=== PATIENT | female | born 1975 | race Caucasian/White ===

== ENCOUNTER 2024-06-19 22:34 | Emergency (ER) | payer MEDICAID, OTHER ==
[~2024-06-19] VITALS: Ht 149.9 cm; Wt 86.2 kg
[~2024-06-19 22:34] MED LIST: DIAZ-950 PO; HYDR-5071 PO; QUET50TA PO; SERT100T PO
[2024-06-19 22:47] VITALS: BP 157/79; PULSE 105; RESP 18; TEMP 97.9; O2SAT 96
[2024-06-19 22:58] VITALS: BP 167/79; PULSE 107; RESP 18; TEMP 97.9
[2024-06-19 23:08] VITALS: O2SAT 96
== END 2024-06-19 23:25 | disposition left against medical advice (07) ==
LOC: MED 22:34
DX: M79.10 Myalgia, unspecified site (principal); Z53.21 Procedure and treatment not carried out due to patient leaving prior to being seen by health care provider